=== PATIENT | female | born 1985 | race Caucasian/White ===

== ENCOUNTER 2019-10-22 20:12 | Emergency (ER) | payer BC, OTHER ==
[~2019-10-22] VITALS: Ht 160 cm; Wt 70.3 kg
--- OUTSIDE RECORDS SUMMARY | 2019-10-22 20:17 | XMS REPORT | Continuity of Care Document ---
Author Organization Unknown Address Unknown Phone Unavailable Allergies There is no data. Medications There is no data. Problems There is no data. Procedures There is no data. Results There is no data. Encounters ACCT No. Visit Date/Time Discharge Status Pt. Type Provider Facility Loc./Unit Complaint [id number] 09/30/2017 10:50:50 09/30/2017 23:59: 59 CLS Outpatient Tim Alejandra
--- OUTSIDE RECORDS SUMMARY | 2019-10-22 20:17 | XMS REPORT ---
Author Author Disha Alejandra Organization [facility] ou Address [address] [place], [place] [id number] Care Team Providers Care Welfare Project Manager Name Role Phone Tim Alejandra PCP Allergies and Adverse Reactions Not available. Plan of Treatment Not available. Medications Not available. Problem List Not available. Vital Signs Not available. Social History Not available. History of Procedures Not available. Results Summary Not available. History Of Immunizations Not available. History of Past Illness Name Date of Onset Comments Drug testing, pre-employment Sep 30 2017 10:01AM Payers Insurance Name Company Name Plan Name Plan Number Policy Number [employer] Number Start Date [facility] [id number] N/A History of Encounters Visit Date Visit Type Provider 09/30/2017 Laboratory Tim Alejandra CLIENT SERVICE COORDINATOR
[2019-10-22 20:42] LABS: BASOPHILS % (AUTO) 0 % (0-10); EOSINOPHILS # (AUTO) 0.2 10^3/uL (0.0-0.3); EOSINOPHILS % (AUTO) 1 % (0-10); HEMATOCRIT 41 % (35-52); HEMOGLOBIN 13.7 G/DL (11.5-16.0); LYMPHOCYTES # (AUTO) 3.7 X 10^3 (1.0-4.0); LYMPHOCYTES % (AUTO) 35 % (12-44); MEAN CORPUSCULAR HEMOGLOBIN 31 PG (25-34); MEAN CORPUSCULAR HGB CONC 33 G/DL (32-36); MEAN CORPUSCULAR VOLUME 92 FL (80-99); MEAN PLATELET VOLUME 10.5 FL (7.4-10.4); MONOCYTES # (AUTO) 0.7 X 10^3 (0.0-1.0); MONOCYTES % (AUTO) 6 % (0-12); NEUTROPHILS % (AUTO) 57 % (42-75); PLATELET COUNT 227 10^3/uL (130-400); RED CELL DISTRIBUTION WIDTH 12.8 % (10.0-14.5); WHITE BLOOD COUNT 10.5 10^3/uL (4.3-11.0)
--- NOTE | 2019-10-22 20:47 | ED Cardiac General ---
History of Present Illness General Chief Complaint: Cardiac/General Problems Stated Complaint: PALPITATIONS, LOW PULSE Nursing Triage Note: TO ED VIA POV AND AMBULATORY TO ROOM 7 WITH C/O HEART FLUTTERING, PRESSURE IN CHEST THAT RADIATES TO BACK. HAS BEEN ILL WITH FATIGUE, DIARRHEA, LOST OF TASTE AND SMELL, ETC. AND HAS BEEN TESTED 3 TIMES FOR COVID-19 WITH ALL BEING NEGATIVE AND THE LAST TEST NEGATIVE LAST SATURDAY. ALSO NEGATIVE TESTS FOR FLU, STREP, PNEUMONIA. TODAY STARTED WORKING AGAIN FROM HOME AND NOTICED FELT LIKE "HEART FLUTTERS", DISCUSSED WITH TELEHEALTH WHO WAS CONCERNED ABOUT POSSIBLE LOW POTASSIUM. PT HAS RECENT NEW RX OF SYMBICORT INH, MX VITAMINS, DOXY ANTIBIOTIC. Source: patient Exam Limitations: no limitations History of Present Illness Date Seen by Provider: Oct 22, 2019 Time Seen by Provider: 20:16 Initial Comments This 33-year-old young lady presents to the emergency room with complaints of palpitations intermittently throughout the day. She has had symptoms of acute illness for the past 2 weeks including diarrhea, loss of taste, myalgia and loss of smell. She was concerned about COVID-19. Over the past 2 weeks she has had 2 negative rapid COVID swabs and one negative PCR swab. She is on antibiotics and a Symbicort inhaler. Patient describes her palpitations as a brief pause in her rhythm. She also was concerned about a heart rate of 52 on a home pulse oximeter. She denies use of any stimulants other than her prescribed medications. She denies or drug use. She rarely drinks alcohol. She called the urgent care where she has been receiving her evaluations and treatment and was advised to come to the emergency room for evaluation of [facility]. Allergies and Home Medications Allergies Coded Allergies: No Known Allergies (Verified Allergy, Unknown, 03/28/06) Patient Home Medication List Home Medication List Reviewed: Yes Review of Systems Review of Systems Constitutional: see HPI EENTM: See HPI Respiratory: No Symptoms Reported Cardiovascular: See HPI Gastrointestinal: See HPI Genitourinary: No Symptoms Reported Musculoskeletal: see HPI Psychiatric/Neurological: No Symptoms Reported Endocrine: No Symptoms Reported Hematologic/Lymphatic: No Symptoms Reported Past [id number]-[id number] Hx Past Med/Social Hx: Reviewed Nursing Past Med/Soc Hx Patient Social History Alcohol Use: Occasionally Uses Recreational Drug Use: No Smoking Status: Never a Smoker Recent Foreign Travel: No Contact w/Someone Who Travel: No Recent Infectious Disease Expo: No Recent Hopitalizations: No Physical Abuse: No Sexual Abuse: No Mistreated: No Fear: No Seasonal Allergies Seasonal Allergies: No Past Medical History Surgeries: Yes (RIGHT CLAVICLE REPAIR) Orthopedic Respiratory: No Cardiac: No Neurological: No : No Last Menstrual Period: Oct 04, 2019 Genitourinary: No Gastrointestinal: No Musculoskeletal: No Endocrine: No HEENT: No Cancer: No Psychosocial: No Integumentary: No Blood Disorders: No Adverse Reaction/Blood Tranf: No Physical Exam Vital Signs Vital Signs - First Documented 10/22/19 20:18 Temp 36.6 Pulse 82 Resp 20 B/P (MAP) 143/108 (120) Pulse Ox 100 O2 Delivery Room Air Capillary Refill : Less Than 3 Seconds Height, Weight, BMI Height: '" Weight: lbs. oz. kg; 27.00 BMI Method: General Appearance: No Apparent Distress, WD/WN HEENT: PERRL/EOMI, Normal ENT Inspection Neck: Normal Inspection Respiratory: Lungs Clear, Normal Breath Sounds, No Accessory Muscle Use, No Respiratory Distress Cardiovascular: Regular Rate, Rhythm, No Murmur, Normal Peripheral Pulses, Other (few PVCs noted on the monitor) Gastrointestinal: Normal Bowel Sounds, Non Tender, Soft Extremity: Normal Inspection, Non Tender, No Calf Tenderness, No Pedal Edema Neurologic/Psychiatric: Alert, Oriented x3, No Motor/Sensory Deficits, routeman II- XII Norm as Tested, Other (slightly anxious) Skin: Normal Color, Warm/Dry Progress/Results/Core Measures Results/Orders Lab Results Laboratory Tests Test 10/22/19 20:26 Range/Units White Blood Count 10.5 4.3-11.0 10^3/uL Red Blood Count 4.48 4.35-5.85 10^6/uL Hemoglobin 13.7 11.5-16.0 G/DL Hematocrit 41 35-52 % Mean Corpuscular Volume 92 80-99 FL Mean Corpuscular Hemoglobin 31 25-34 PG Mean Corpuscular Hemoglobin Concent 33 32-36 G/DL Red Cell Distribution Width 12.8 10.0-14.5 % Platelet Count 227 130-400 10^3/uL Mean Platelet Volume 10.5 H 7.4-10.4 FL Neutrophils (%) (Auto) 57 42-75 % Lymphocytes (%) (Auto) 35 12-44 % Monocytes (%) (Auto) 6 0-12 % Eosinophils (%) (Auto) 1 0-10 % Basophils (%) (Auto) 0 0-10 % Neutrophils # (Auto) 6.0 1.8-7.8 X 10^3 Lymphocytes # (Auto) 3.7 1.0-4.0 X 10^3 Monocytes # (Auto) 0.7 0.0-1.0 X 10^3 Eosinophils # (Auto) 0.2 0.0-0.3 10^3/uL Basophils # (Auto) 0.0 0.0-0.1 10^3/uL Sodium Level 137 135-145 MMOL/L Potassium Level 3.3 L 3.6-5.0 MMOL/L Chloride Level 103 98-107 MMOL/L Carbon Dioxide Level 23 21-32 MMOL/L Anion Gap 11 5-14 MMOL/L Blood Urea Nitrogen 15 7-18 MG/DL Creatinine 0.82 0.60-1.30 MG/DL Estimat Glomerular Filtration Rate > 60 BUN/Creatinine Ratio 18 Glucose Level 83 70-105 MG/DL Calcium Level 9.6 8.5-10.1 MG/DL Corrected Calcium 9.2 8.5-10.1 MG/DL Magnesium Level 1.8 1.6-2.4 MG/DL Total Bilirubin 0.4 0.1-1.0 MG/DL Aspartate Amino Transf (AST/SGOT) 16 5-34 U/L Alanine Aminotransferase (ALT/SGPT) 18 0-55 U/L Alkaline Phosphatase 57 40-136 U/L Total Protein 7.5 6.4-8.2 GM/DL Albumin 4.5 3.2-4.5 GM/DL TSH Independence Testing 1.99 0.35-4.94 UIU/ML Serum Test, Qualitative NEGATIVE NEGATIVE My Orders Orders - NILSON PATEL MD Cbc With Automated Diff (10/22/19:) Comprehensive Metabolic Panel (10/22/19:) Hcg,Qualitative Serum (10/22/19:) Magnesium (10/22/19:29) Thyroid Analyzer (10/22/19:) Ed Iv/Invasive Line Start (10/22/19:) Ekg Tracing (8/13/20 20:29) Monitor-Rhythm Ecg Trace Only (10/22/19 20:29) Potassium Chloride (Tablet) (Klor Con Ta (10/22/19 21:45) Medications Given in ED Current Medications Medications Dose Ordered Sig/Agustina Route Start Time Stop Time Status Last Admin Dose Admin Potassium Chloride 40 meq ONCE ONCE PO 10/22/19 21:45 10/22/19 21:46 DC 10/22/19 21:47 40 MEQ Vital Signs/I&O 10/22/19 20:18 Temp 36.6 Pulse 82 Resp 20 B/P (MAP) 143/108 (120) Pulse Ox 100 O2 Delivery Room Air Blood Pressure Mean: 120 Progress Progress Note : Progress Note Workup was unremarkable except to mild hypokalemia and occasional PVC's. KCl supplement was given and pt was dismissed with reassurance. Initial ECG Impression Date: Oct 22, 2019 Initial ECG Impression Time: 20:22 Initial ECG Rate: 72 Initial ECG Rhythm: Normal Sinus Initial ECG Intervals: Normal Initial ECG Impression: Normal Comment Normal sinus rhythm with no ST elevation or depression. No abnormal intervals or axis deviation. No PVCs noted on this EKG. Departure Impression Primary Impression: Palpitations Additional Impression: PVCs (premature ventricular contractions) Disposition: 01 HOME, SELF-CARE Condition: Stable Departure-Patient Inst. Decision time for Depature: 22:02 Referrals: ARELI MOHAMUD MD (PCP/Family) Primary Care Physician Patient Instructions: Hypokalemia, Palpitations Add. Discharge Instructions: Stay well-hydrated and eat a well-balanced diet. Follow-up with your primary care provider or return to the ER as needed. All discharge instructions reviewed with patient and/or family. Voiced understanding. NILSON PATEL MD Oct 22, 2019 20:47
[2019-10-22 20:58] LABS: ALANINE AMINOTRANSFERASE 18 U/L (0-55); ALBUMIN 4.5 GM/DL (3.2-4.5); ALKALINE PHOSPHATASE 57 U/L (40-136); BILIRUBIN,TOTAL 0.4 MG/DL (0.1-1.0); BUN/CREATININE RATIO 18; CALCIUM 9.6 MG/DL (8.5-10.1); CARBON DIOXIDE 23 MMOL/L (21-32); CHLORIDE 103 MMOL/L (98-107); CREATININE SERUM 0.82 MG/DL (0.60-1.30); GFR ESTIMATED > 60; GLUCOSE 83 MG/DL (70-105); MAGNESIUM 1.8 MG/DL (1.6-2.4); POTASSIUM 3.3 MMOL/L (3.6-5.0); SODIUM 137 MMOL/L (135-145); TOTAL PROTEIN 7.5 GM/DL (6.4-8.2)
[2019-10-22 21:18] LABS: TSH (THYROID ANALYZER) 1.99 UIU/ML (0.35-4.94)
[2019-10-22] MEDS ORDERED: KCL 10 MEQ TAB (MICRO K) PO ONE (21:45)
[2019-10-22 22:15] VITALS: BP 119/70
== END 2019-10-22 22:15 | disposition home or self-care (01) ==
LOC: EDUNIT# 20:12 → ER 20:14
DX: I49.3 Ventricular premature depolarization (principal)
CPT/HCPCS: 36415; 80053; 83735; 84443; 84703; 85025; 93005; 93041

== ENCOUNTER → 2019-11-13 | Outpatient (CLI) | payer OTHER | LOC: CARD 14:23 | PROVIDERS: ATTEND Family Medicine | DX: R00.2 Palpitations (principal) | CPT/HCPCS: 93005 ==

== ENCOUNTER 2020-05-24 08:30 | Outpatient (RCR) | payer OTHER | END 2020-08-22 | disposition home or self-care (01) | LOC: CARD 08:30 | PROVIDERS: ATTEND Family Medicine | DX: R00.2 Palpitations (principal) | CPT/HCPCS: 93225; 93226 ==